=== PATIENT | male | born 1980 | race African-American/Black ===

== ENCOUNTER 2017-05-12 19:40 | Emergency (ER) | payer OTHER ==
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
[2017-05-12] MEDS ORDERED: IBUPROFEN 600 MG TABLET PO ONE (21:39)
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
[2017-05-12 22:31] VITALS: BP 167/99
== END 2017-05-12 22:31 | disposition home or self-care (01) ==
LOC: ER 19:40
DX: S16.1XXA Strain of muscle, fascia and tendon at neck level, initial encounter (principal); S70.01XA Contusion of right hip, initial encounter; V40.5XXA Car driver injured in collision with pedestrian or animal in traffic accident, initial encounter; M25.551 Pain in right hip; M54.2 Cervicalgia; M54.9 Dorsalgia, unspecified; R51 Headache; F17.200 Nicotine dependence, unspecified, uncomplicated; I10 Essential (primary) hypertension; Z79.899 Other long term (current) drug therapy; Z96.641 Presence of right artificial hip joint
CPT/HCPCS: 99284